=== PATIENT | male | born 1985 | race Caucasian/White ===

== ENCOUNTER 2019-05-15 12:08 | Emergency (ER) | payer BC, SELFPAY ==
[2019-05-15 12:18] VITALS: BP 140/82; PULSE 56; RESP 16; TEMP 36.8; O2SAT 96
--- NOTE | 2019-05-15 12:28 | ED.URI ---
HPI - URI/Sore Throat General Chief Complaint: Upper Respiratory Infection Stated Complaint: Cough/Chest Pain Time Seen by Provider: 05/15/19 12:31 Source: patient and family History of Present Illness HPI Narrative: Patient presents with loose congested cough productive at times patient denies any shortness of breath no chest pain. Patient is a history of a pack-a-day smoker and history of asthma. Patient states he is not had any problems with his asthma since he was a young child. Patient also reports some nasal congestion and sinus tenderness. Patient is not taking thing [id number] for his symptoms. MD elicited complaint: cough, rhinorrhea and nasal congestion Related Data Allergies Allergy/AdvReac Type Severity Reaction Status Date / Time No Known Allergies Allergy Verified 05/15/19 12:26 Review of Systems Review of Systems: Narrative: CONSTITUTIONAL: Denies fever, chills, or sweats. EYES: Denies visual changes, redness, or discharge. ENT: Denies rhinorrhea, congestion, sore throat, or otalgia. CARDIOVASCULAR: Denies chest pain, palpitations, or edema. RESPIRATORY: Denies cough or dyspnea. GASTROINTESTINAL: Denies abdominal pain, nausea, vomiting, or diarrhea. GENITOURINARY: Denies dysuria or hematuria. SKIN: Denies rash or itching. MUSCULOSKELETAL: Denies back pain, joint pain, or myalgia. NEUROLOGIC: Denies headache, numbness, or weakness. PSYCHIATRIC: Denies anxiety or depression. All systems reviewed & are unremarkable except as noted in HPI and below PMFSH Comments At time of signature, agree with nursing past medical, surgical, social and family history. There is no relevant family history pertinent to the presenting complaint Exam Narrative: Exam Narrative: GENERAL: Well-appearing, well-nourished, and in no acute distress. HEAD: Normocephalic, atraumatic. EYES: PERRLA and EOMI. ENT: Nares clear, no rhinorrhea or epistaxis. Mucous membranes moist. Moderate maxillary sinus tenderness mild postnasal drainage NECK: Supple. CHEST: Clear to auscultation. No respiratory distress. HEART: Regular rate and rhythm. No murmur heard. Normal peripheral pulses. ABDOMEN: Soft, nontender, nondistended, normal active bowel sounds. EXTREMITIES: Normal range of motion. No edema. SKIN: Warm, dry, no rash. NEURO: No focal deficits. Alert and oriented x3. Stout Coma Scale Eye Opening: Spontaneous 4 Kevin Coma Scale Motor: Obeys Commands 6 Kevin Coma Scale Verbal: Oriented 5 Kevin Coma Scale Total 15 Course Vital Signs Vital signs: Vital Signs Temperature 36.8 C 05/15/19 12:18 Pulse Rate 56 L 05/15/19 12:18 Respiratory Rate 16 05/15/19 12:18 Blood Pressure 140/82 05/15/19 12:18 Pulse Oximetry 96 05/15/19 12:18 Temperature 36.8 C 05/15/19 12:18 Pulse Rate 56 L 05/15/19 12:18 Respiratory Rate 16 05/15/19 12:18 Blood Pressure 140/82 05/15/19 12:18 Pulse Oximetry 96 05/15/19 12:18 Please SHIELA schedule a followup visit with your personal physician for further evaluation and treatment. Including recheck and discussion of your blood pressure. If your symptoms persist, change or worsen significantly before you can contact your personal physician then please, without delay, go to the emergency department for further evaluation MDM - URI/Sore Throat MDM Narrative Medical decision making narrative: URI, sinusitis, bronchitis, Differential Diagnosis Differential diagnosis: Likely upper respiratory infection, sinusitis and bronchitis Critical Care Time Critical Care Time Critical Care Time: No Discharge Plan Discharge Clinical Impression: Bronchitis Upper respiratory infection Qualifiers: URI type: unspecified viral URI Qualified Code(s): J06.9 - Acute upper respiratory infection, unspecified Sinusitis Qualifiers: Sinusitis location: frontal Chronicity: acute Recurrence: not specified as recurrent Qualified Code(s): J01.10 - Acute frontal sinusitis, unspecified
== END 2019-05-15 12:35 | disposition home or self-care (01) ==
PROVIDERS: Emergency Provider Nurse Practitioner Family
DX: J40 Bronchitis, not specified as acute or chronic (principal); J06.9 Acute upper respiratory infection, unspecified; J01.10 Acute frontal sinusitis, unspecified
CPT/HCPCS: 99213; G0463